=== PATIENT | female | born 2000 | race Caucasian/White ===

== ENCOUNTER → 2020-08-29 | Emergency (ER) | payer OTHER, BC ==
[~2020-08-29] VITALS: Ht 160 cm; Wt 99.8 kg
== END ==
LOC: ED 06:58
DX: S02.19XA Other fracture of base of skull, initial encounter for closed fracture (principal); S00.431A Contusion of right ear, initial encounter; V43.53XA Car driver injured in collision with pick-up truck in traffic accident, initial encounter; Z20.822 Contact with and (suspected) exposure to COVID-19
CPT/HCPCS: 70450; 71045; 71260; 72125; 74177; 80053; 82150; 82550; 83690; 85025; 86850; 86900; 86901; 90471; 90715; 99285-25; C9803; J7121; Q9967; U0003